=== PATIENT | female | born 1940 | race Hispanic/Latino ===

== ENCOUNTER → 2024-02-24 | Outpatient (CLI) | payer MEDICARE ==
--- NOTE | 2024-02-24 15:57 | HMCIMG ---
US ARTERIAL UNILA LOW EXT DUPL HISTORY: Pain COMPARISON: None TECHNIQUE: Right lower extremity arterial Doppler ultrasound study was performed. FINDINGS: Abnormal monophasic arterial waveform is seen of the right posterior tibial artery. Normal triphasic arterial waveforms are noted in the right common femoral, deep femoral, superficial femoral, popliteal, anterior tibial and dorsalis pedal arteries. On the right, the peak systolic velocity of the common femoral artery is 97 cm/s, the proximal femoral artery is 104 cm/s, the mid femoral artery is 93 cm/s, the distal femoral artery is 57 cm/s, the proximal popliteal artery is 51 cm/s, the distal popliteal artery is 46 cm/s, the anterior tibial artery is 88 cm/s, the posterior tibial artery artery is 28 cm/s,and the dorsalis pedal artery is 40 cm/s. IMPRESSION: 1. Atherosclerotic disease. 2. Abnormal monophasic arterial waveform is seen of the right posterior tibial artery.
--- NOTE | 2024-02-24 15:58 | HMCIMG ---
US VENOUS DOPPLER UNILATERAL HISTORY: Pain COMPARISON: None TECHNIQUE: Right lower extremity venous Doppler ultrasound study was performed. FINDINGS: The right common femoral, femoral, popliteal, and posterior tibial veins are visualized. Normal flow with augmentation and compressibilities are demonstrated. Right greater saphenous vein is patent. IMPRESSION: 1. No evidence of deep venous thrombosis is seen.
== END | disposition home or self-care (01) ==
LOC: RAH 14:11
PROVIDERS: ATTEND Nurse Practitioner Family
DX: I70.201 Unspecified atherosclerosis of native arteries of extremities, right leg (principal); M79.604 Pain in right leg
CPT/HCPCS: 93926; 93971

== ENCOUNTER → 2024-11-11 | Outpatient (CLI) | payer MEDICARE, MEDICAID ==
--- NOTE | 2024-11-11 14:50 | HMCIMG ---
CLINICAL INDICATION: Age-related osteoporosis without current pathological fracture COMPARISON: None available TECHNIQUE: Bone densitometry is performed of the lumbar spine and left hip. FINDINGS: Total BMD of lumbar spine is 0.627 g/cm2 with a T-score of -2.8 and Z-score is -1.0. Total BMD of left hip is 0.521 g/cm2 with a T-score of -2.3 and Z-score is -1.0. FRAX SCORE: The 10 year fracture risk for a major osteoporotic fracture and hip fracture not reported T score at or below -2.5 IMPRESSION: 1. 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 I would recommend follow-up in 13 months World Health Organization criteria for BMD interpretation classify patients as Normal (T-score at or above -1.0), Osteopenic (T-score between -1.0 and -2.5), or Osteoporotic (T-score at or below -2.5). FRAX SCORE: A. All treatment decisions require clinical judgment and consideration of individual patient factors, including patient preferences, comorbidities, previous drug use, risk factors not captured in the FRAX model (e.g., frailty, falls, vitamin D deficiency, increased bone turnover, interval significant decline in bone density) and possible [id number]-estimation of fracture risk by FRAX. B. In addition, the NOF Guide recommends that FDA-approved medical therapies be considered in postmenopausal women and men age greater than or equal to 50 years with a: i. Hip or vertebral (clinical or morphometric) fracture. ii. T-score of less than or equal to -2.5 at the spine or hip. iii. Ten-year fracture probability by FRAX of greater than or equal to 3% for hip fracture of greater than or equal to 20% for major osteoporotic fracture.
== END | disposition home or self-care (01) ==
LOC: RAH 08:39
PROVIDERS: ATTEND Nurse Practitioner Family
DX: M81.0 Age-related osteoporosis without current pathological fracture (principal); M85.89 Other specified disorders of bone density and structure, multiple sites
CPT/HCPCS: 77080